=== PATIENT | male | born 1950 | race Two or more races ===

== ENCOUNTER 2017-08-13 13:42 | Outpatient (CLI) | payer OTHER ==
[~2017-08-13 13:42] MED LIST: CIPRO500 MG PO; CLONAZEPAM0.5 MG/TAB PO; CLONAZEPAM2 MG PO; Colace 100MG PO; DURICEF500 MG; LOPERAMIDE2 MG PO; NABUMETONE500 MG PO; OMEPRAZOLE20 MG PO; PERCOCET 5/3251 TAB PO; TOPROL XL50 MG PO; TRAMADOL HCL-AP1 TAB
== END 2017-08-13 13:45 | disposition home or self-care (01) ==
LOC: RAD 501 13:42
DX: M25.561 Pain in right knee (principal); M25.562 Pain in left knee

== ENCOUNTER 2018-04-19 09:31 | Outpatient (CLI) | payer OTHER | END 2018-04-19 14:58 | disposition home or self-care (01) | LOC: SONOGRAMA 09:31 | DX: E04.1 Nontoxic single thyroid nodule (principal) ==

== ENCOUNTER 2018-04-19 11:06 | Outpatient (CLI) | payer OTHER | END 2018-04-19 11:13 | disposition home or self-care (01) | LOC: NUCLEAR 11:06 | DX: M81.0 Age-related osteoporosis without current pathological fracture (principal) ==

== ENCOUNTER 2018-06-18 09:36 | Outpatient (CLI) | payer OTHER | END 2018-06-18 09:40 | disposition home or self-care (01) | LOC: SONOGRAMA 09:36 | DX: E04.2 Nontoxic multinodular goiter (principal) ==

== ENCOUNTER → 2018-08-28 | Outpatient (CLI) | payer OTHER | END | disposition home or self-care (01) | LOC: RAD 501 09:34 | DX: M25.561 Pain in right knee (principal); M25.562 Pain in left knee ==

== ENCOUNTER → 2019-09-17 06:00 | Outpatient (CLI) | payer OTHER ==
[~2019-09-17 06:00] MED LIST changes: +ASPIR 8181 MG PO; +CLONAZEPAM0.5 M1; +CLONAZEPAM1 MG; +CRESTOR20 MG PO; +DULOX PO; +HORIZANT600 MG PO; +PROTONIX40 MG PO; +TAMS0.4C
== END | disposition home or self-care (01) ==
LOC: LAB 06:00 → ADM 07:30 → CIR.AMB 09-25 07:30 → EDSTATUS 09-25 07:30
DX: K42.0 Umbilical hernia with obstruction, without gangrene (principal); R10.9 Unspecified abdominal pain; I10 Essential (primary) hypertension

== ENCOUNTER 2020-08-31 13:09 | Outpatient (CLI) | payer OTHER | END 2020-08-31 14:11 | disposition home or self-care (01) | LOC: SONOGRAMA 13:09 | PROVIDERS: ATTEND Urology | DX: E04.1 Nontoxic single thyroid nodule (principal); N40.1 Benign prostatic hyperplasia with lower urinary tract symptoms; R33.8 Other retention of urine ==

== ENCOUNTER 2020-09-27 13:45 | Outpatient (CLI) | payer OTHER | END 2020-09-27 13:48 | disposition home or self-care (01) | LOC: NUCLEAR 13:45 | DX: M81.0 Age-related osteoporosis without current pathological fracture (principal) ==

== ENCOUNTER 2020-11-01 09:15 | Outpatient (CLI) | payer OTHER | END 2020-11-01 09:23 | disposition home or self-care (01) | LOC: RAD 09:15 | PROVIDERS: ATTEND Orthopaedic Surgery | DX: M25.561 Pain in right knee (principal); M25.562 Pain in left knee; M54.2 Cervicalgia; M25.511 Pain in right shoulder ==

== ENCOUNTER 2024-09-10 13:32 | Outpatient (CLI) | payer OTHER | END 2024-09-10 13:43 | disposition home or self-care (01) | LOC: RAD 13:32 | DX: I11.9 Hypertensive heart disease without heart failure (principal); J44.9 Chronic obstructive pulmonary disease, unspecified ==

== ENCOUNTER 2024-09-12 07:25 | Outpatient (CLI) | payer OTHER | END 2024-09-12 07:29 | disposition home or self-care (01) | LOC: SONOGRAMA 07:25 | PROVIDERS: ATTEND Internal Medicine Gastroenterology | DX: N40.0 Benign prostatic hyperplasia without lower urinary tract symptoms (principal); R31.1 Benign essential microscopic hematuria; N20.0 Calculus of kidney; R10.11 Right upper quadrant pain ==

== ENCOUNTER 2024-09-22 13:37 | Outpatient (CLI) | payer OTHER | END 2024-09-22 13:45 | disposition home or self-care (01) | LOC: RAD 13:37 | PROVIDERS: ATTEND Orthopaedic Surgery | DX: M25.561 Pain in right knee (principal); M25.562 Pain in left knee ==

== ENCOUNTER 2024-09-25 13:15 | Outpatient (CLI) | payer OTHER | END 2024-09-25 13:16 | disposition home or self-care (01) | LOC: NUCLEAR 13:15 | PROVIDERS: ATTEND Internal Medicine Rheumatology | DX: M81.0 Age-related osteoporosis without current pathological fracture (principal) ==

== ENCOUNTER 2024-12-05 08:20 | Outpatient (CLI) | payer OTHER | END 2024-12-05 08:22 | disposition home or self-care (01) | LOC: TOM 08:20 | PROVIDERS: ATTEND Internal Medicine Gastroenterology | DX: D13.5 Benign neoplasm of extrahepatic bile ducts (principal) | CPT/HCPCS: 74183; Q9965 ==

== ENCOUNTER 2024-12-30 11:26 | Outpatient (CLI) | payer OTHER | END 2024-12-30 11:33 | disposition home or self-care (01) | LOC: RAD 11:26 | PROVIDERS: ATTEND Student in an Organized Health Care Education/Training Program | DX: M99.01 Segmental and somatic dysfunction of cervical region (principal); M99.02 Segmental and somatic dysfunction of thoracic region; M99.03 Segmental and somatic dysfunction of lumbar region ==